=== PATIENT | female | born 1950 | race Caucasian/White ===

== ENCOUNTER 2016-12-21 15:31 | Emergency (ER) | payer OTHER ==
[2016-12-21] MEDS ORDERED: HYDROCODONE/ACETAMINOPHEN 5/325MG TABLET ONE (16:47)
[2016-12-21] MEDS ORDERED: IBUPROFEN 600 MG TABLET ONE (16:47)
--- NOTE | 2016-12-21 17:28 | RAD ---
EXAMINATION:SHOULDER-RIGHT 2 OR MORE VIEWS Clinical indication: Fall yesterday. Increasing right shoulder pain. Comparisons:None Findings: No fracture is identified. The glenohumeral joint is maintained. There is mild osteoarthritic change of the acromion clavicular joint. Focal corticated calcification is noted near the superior aspect of the right humerus. No other soft tissue normalities identified. IMPRESSION: 1. No evidence of acute fracture or dislocation right shoulder. 2. Periarticular constipation. Findings may reflect postinflammatory changes or calcific tendinopathy. 3. Mild osteoarthritic changes of the right acromioclavicular joint.
--- NOTE | 2016-12-21 17:29 | RAD ---
EXAMINATION : CLAVICLE RIGHT HISTORY: Right clavicle pain following injury. Initial encounter. COMPARISONS: None FINDINGS: No displaced fracture is identified. The acromioclavicular and sternoclavicular joint spaces are maintained. No gross soft tissue abnormality is seen. IMPRESSION: Negative right clavicle.
== END 2016-12-21 18:21 | disposition home or self-care (01) ==
LOC: ED 15:31
DX: M25.511 Pain in right shoulder (principal); W01.0XXA Fall on same level from slipping, tripping and stumbling without subsequent striking against object, initial encounter; Y92.9 Unspecified place or not applicable
CPT/HCPCS: 73000; 73030; 99283 ×2; A9270 ×2